=== PATIENT | female | born 1975 | race Caucasian/White ===

== ENCOUNTER 2018-08-21 07:48 | Emergency (ER) | payer OTHER ==
[~2018-08-21] VITALS: Ht 154.9 cm; Wt 63.5 kg
[~2018-08-21 07:48] MED LIST: TOPROL XL25 MG PO
[2018-08-21] MEDS ORDERED: IBUPROFEN800 MG PO (09:34)
== END 2018-08-21 09:53 | disposition home or self-care (01) ==
LOC: ER 07:48
DX: N64.4 Mastodynia (principal)

== ENCOUNTER 2019-03-17 06:38 | Emergency (ER) | payer OTHER ==
[~2019-03-17] VITALS: Ht 154.9 cm; Wt 72.1 kg
[~2019-03-17 06:38] MED LIST changes: +IBUPROFEN800 MG PO
== END 2019-03-17 09:39 | disposition home or self-care (01) ==
LOC: ER 06:38
DX: M54.89 Other dorsalgia (principal)